=== PATIENT | female | born 1985 | race African-American/Black ===

== ENCOUNTER 2017-03-03 11:14 | Emergency (ER) | payer OTHER ==
[~2017-03-03] VITALS: Ht 154.9 cm; Wt 72.7 kg
[2017-03-03 12:22] VITALS: BP 123/71
[2017-03-03] MEDS ORDERED: ALBUTEROL SULFATE 2.5 MG/0.5 ML NEB SOLUTION NEB ONE (12:30)
[2017-03-03] MEDS ORDERED: IPRATROPIUM BROMIDE 0.5 MG/2.5 ML NEB SOLUTION NEB ONE (12:30)
== END 2017-03-03 13:18 | disposition home or self-care (01) ==
LOC: EMS 11:16
DX: J45.909 Unspecified asthma, uncomplicated (principal); F17.210 Nicotine dependence, cigarettes, uncomplicated; Z90.49 Acquired absence of other specified parts of digestive tract
CPT/HCPCS: 99283

== ENCOUNTER 2017-12-04 07:13 | Emergency (ER) | payer OTHER ==
[~2017-12-04] VITALS: Ht 154.9 cm; Wt 70.0 kg
[2017-12-04] MEDS ORDERED: CYCL10 PO (07:36)
[2017-12-04] MEDS ORDERED: LORA10TA7 PO (07:36)
[2017-12-04] MEDS ORDERED: FURO20 PO (07:36)
[2017-12-04] MEDS ORDERED: DICL50TA9 PO (07:36)
[2017-12-04] MEDS ORDERED: LISI-661 PO (07:36)
[2017-12-04] MEDS ORDERED: FUROSEMIDE 40 MG/4 ML VIAL IVP ONE (09:45)
[2017-12-04 09:59] LABS: BASOPHILS % (AUTO) 0.8 % (0.0-2.0); EOSINOPHILS % (AUTO) 2.7 % (1.0-6.0); HEMOGLOBIN 11.4 g/dL (12.0-16.0); LYMPHOCYTES % (AUTO) 21.3 % (22.0-44.0); MEAN CORPUSCULAR HEMOGLOBIN 29.4 pg (26.0-34.0); MEAN CORPUSCULAR HGB CONC 33.6 G/dL (31.0-37.0); MEAN CORPUSCULAR VOLUME 88 fL (80-100); MONOCYTES # (AUTO) 0.7 K/uL (0.1-1.0); MONOCYTES % (AUTO) 7.7 % (2.0-9.0); NEUTROPHILS # (AUTO) 6.3 K/uL (1.8-7.7); NEUTROPHILS % (AUTO) 67.5 % (40.0-70.0); PLATELET COUNT (AUTO) 349 K/uL (150-450); RED BLOOD CELL COUNT(AUTO) 3.88 MIL/uL (4.00-5.20); RED CELL DISTRIBUTION WIDTH 13.5 % (11.5-14.5)
[2017-12-04 10:14] LABS: ANION GAP 9 mmol/L (8-16); CALCIUM, TOTAL 8.8 mg/dL (8.8-10.5); CARBON DIOXIDE 26 mmol/L (22-29); CHLORIDE 105 mmol/L (98-107); GLOMERULAR FILTR. RATE CALC > 60 mL/min (>60); GLUCOSE,RANDOM 90 mg/dL (70-110); POTASSIUM 3.7 mmol/L (3.5-5.1); SODIUM SERUM 140 mmol/L (136-145); UREA NITROGEN, BLOOD 14 mg/dL (7-18)
[2017-12-04 10:19] LABS: ALANINE AMINOTRANSFERASE 16 U/L (12-78); ALBUMIN 3.5 g/dL (3.4-5.0); ALKALINE PHOSPHATASE 70 U/L (46-116); ASPARTATE AMINOTRANSFERASE 19 U/L (15-37); BILIRUBIN,TOTAL 0.3 mg/dL (0.1-1.0); TOTAL PROTEIN, SERUM 7.1 g/dL (6.4-8.2)
[2017-12-04 10:24] LABS: B-TYPE NATRIURETIC PEPTIDE 7 pg/mL (0-100)
[2017-12-04 11:21] LABS: APPEARANCE,URINE CLOUDY (CLEAR); BILIRUBIN,URINE NEGATIVE (NEGATIVE); GLUCOSE, URINE (UA) NEGATIVE (NEGATIVE); KETONES,URINE NEGATIVE (NEGATIVE); LEUKOCYTE ESTERASE ,URINE SMALL (NEGATIVE); NITRATE,URINE POSITIVE (NEGATIVE); OCCULT BLOOD,URINE TRACE (NEGATIVE); PROTEIN,URINE NEGATIVE (NEGATIVE); UROBILINOGEN,URINE 0.2 mg/dL (<=1.0)
[2017-12-04 11:25] LABS: BACTERIA,URINE Moderate /HPF (None Seen); RBC,URINE 0-2 /HPF (0-2)
[2017-12-04 11:26] LABS: SQUAMOUS EPITHELIAL CELL,UR Few /LPF (None Seen)
[2017-12-04 12:37] VITALS: BP 116/62
== END 2017-12-04 12:27 | disposition home or self-care (01) ==
LOC: EMS 07:13
DX: R60.0 Localized edema (principal); M54.9 Dorsalgia, unspecified; F17.210 Nicotine dependence, cigarettes, uncomplicated
CPT/HCPCS: 36415; 71045; 80053; 81001; 83880; 84484; 84703; 85025; 87077; 87086; 93005; 96374; 99285; 99406; J1940

== ENCOUNTER 2019-03-29 20:41 | Emergency (ER) | payer OTHER ==
[~2019-03-29] VITALS: Ht 152.4 cm; Wt 81.8 kg
[~2019-03-29 20:41] MED LIST: CYCL10 PO; DICL50TA9 PO; FURO20 PO; LISI-661 PO; LORA10TA7 PO
[2019-03-29] MEDS ORDERED: ACETAMINOPHEN 325 MG TABLET PO ONE (22:45)
[2019-03-29] MEDS ORDERED: KETOROLAC TROMETHAMINE 30 MG/ML VIAL IM ONE (22:45)
[2019-03-29 23:16] VITALS: BP 165/116
== END 2019-03-29 23:38 | disposition home or self-care (01) ==
LOC: EMS 20:42
DX: M79.672 Pain in left foot (principal); M79.671 Pain in right foot; I10 Essential (primary) hypertension; F17.210 Nicotine dependence, cigarettes, uncomplicated; Z90.49 Acquired absence of other specified parts of digestive tract
CPT/HCPCS: 36415; 85379; 93970; 96372; 99284; J1885

== ENCOUNTER 2022-09-06 22:41 | Emergency (ER) | payer OTHER ==
[~2022-09-06] VITALS: Ht 154.9 cm; Wt 91.0 kg
[~2022-09-06 22:41] MED LIST changes: -CYCL10 PO; -DICL50TA9 PO; -FURO20 PO; -LISI-661 PO; +LISI-893 PO; -LORA10TA7 PO
[2022-09-07] MEDS ORDERED: ACETAMINOPHEN 500 MG TABLET PO ONE (03:00)
[2022-09-07] MEDS ORDERED: BENZONATATE 100 MG CAPSULE PO ONE (03:00)
[2022-09-07 03:31] LABS: COVID AG,FIA SOURCE NASOPHARYNGEAL
[2022-09-07 03:58] VITALS: BP 136/72
[2022-09-07] MEDS ORDERED: BENZ-227 PO ×2 (03:58→04:47)
== END 2022-09-07 04:07 | disposition home or self-care (01) ==
LOC: EMS 22:43
DX: J11.1 Influenza due to unidentified influenza virus with other respiratory manifestations (principal); I10 Essential (primary) hypertension; F17.210 Nicotine dependence, cigarettes, uncomplicated; Z90.49 Acquired absence of other specified parts of digestive tract; Z20.822 Contact with and (suspected) exposure to COVID-19
CPT/HCPCS: 99283

== ENCOUNTER 2023-08-31 23:11 | Emergency (ER) | payer OTHER ==
[~2023-08-31] VITALS: Ht 154.9 cm; Wt 111.0 kg
[~2023-08-31 23:11] MED LIST changes: +BENZ-227 PO
[2023-08-31 23:13] VITALS: TEMP 98
[2023-09-01 02:04] VITALS: BP 154/96; PULSE 107; RESP 16
[2023-09-01] MEDS ORDERED: MetroNIDAZOLE 250 MG TABLET PO ONE (02:15)
[2023-09-01] MEDS: MetroNIDAZOLE 500 MG TABLET PO ONE (02:33)
[2023-09-01] MEDS: ONDANSETRON HCL 4 MG TABLET PO ONE (02:33)
[2023-09-01] MEDS ORDERED: METR500 PO (02:38)
[2023-09-01] MEDS ORDERED: FLUC150T61 PO (02:38)
[2023-09-01] MEDS ORDERED: ONDA-104 PO (02:39)
== END 2023-09-01 02:52 | disposition home or self-care (01) ==
LOC: EMS 23:12
DX: N76.0 Acute vaginitis (principal); B37.9 Candidiasis, unspecified; I10 Essential (primary) hypertension; F17.210 Nicotine dependence, cigarettes, uncomplicated; Z90.49 Acquired absence of other specified parts of digestive tract
CPT/HCPCS: 99283; Q0162